=== PATIENT | male | born 1985 | race African-American/Black ===

== ENCOUNTER 2016-05-19 22:34 | Observation (INO) ==
[2016-05-19] MEDS ORDERED: DIPH/TET/ACEL PERT BOOSTER VACCINE 0.5 ML VIAL IM ONE ×2 (22:47→22:48)
[2016-05-19] MEDS ORDERED: SODIUM CHLORIDE 0.9% 1,000 ML IV STA (22:48)
[2016-05-19] MEDS ORDERED: ceFAZolin 1,000 MG VIAL ONE (22:54)
[2016-05-19 22:59] LABS: Basophils % 0.5 % (0.0-0.8); Eosinophils % 0.5 % (0.00-10.9); Hematocrit 47.5 VOL% (42.0-52.0); Hemoglobin 15.7 GM/DL (14.0-18.0); Immature Granulocytes % 0.2 %; Immature Granulocytes Absolute 0.01 #; Lymphocytes # 2.2 10*3/uL (1.4-4.0); Lymphocytes % 36.7 % (21.2-54.2); Mean Corpuscular HGB Conc 33.1 GM/DL (32-36); Mean Corpuscular Hemoglobin 29 PG (27-34); Mean Corpuscular Volume 88.5 FL (87-102); Mean Platelet Volume 9.9 FL (9.6-12.0); Monocytes # 0.4 10*3/uL (0.11-0.8); Monocytes % 6.9 % (1.7-12.7); Neutrophils # 3.3 10*3/uL (1.4-7.4); Neutrophils % 55.2 % (38.7-73.9); Platelet Count 180 T/CUMM (130-400); Red Blood Count 5.37 MC/CUMM (3.8-5.5); Red Cell Distribution Width 13.9 % (9.3-17.3); White Blood Count 5.9 T/CUMM (4-12)
[2016-05-19 23:06] LABS: PT Patient Result 10.6 SECS; Partial Thromboplastin Time < 21.0 SECS (0-40)
[2016-05-19] MEDS ORDERED: ONDANSETRON 4 MG/2 ML VIAL IV PRN (23:17)
[2016-05-19] MEDS ORDERED: ACETAMINOPHEN 325 MG TABLET PO PRN (23:17)
[2016-05-19] MEDS ORDERED: ALUMINUM/MAGNES/SIMETH MAX STR 30 ML UDCUP PO PRN (23:17)
[2016-05-19] MEDS ORDERED: HYDROmorphone 2 MG/1 ML VIAL IV PRN (23:17)
[2016-05-19 23:20] LABS: Lactic Acid 2.7 MMOL/L (0.4-2.0)
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
[2016-05-19 23:23] LABS: Albumin 4.7 G/DL (3.4-5.0); Bilirubin,Total 0.5 MG/DL (0.2-1.0); Calcium 9.2 MG/DL (8.5-10.1); Osmolality,Calculated 279.5 MOS/KG (273-304); Potassium 3.7 MMOL/L (3.5-5.1); Total Protein 8.3 G/DL (6.4-8.3)
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
[2016-05-20] MEDS: KETOROLAC 15 MG/1 ML VIAL IV SCH ×3 (01:07→12:08)
[2016-05-20] MEDS: DEXTROSE 5% LACTATED RINGERS 1,000 ML IV SCH ×2 (01:10→12:10)
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
[2016-05-20 08:03] LABS: Basophils % 0.4 % (0.0-0.8); Eosinophils # 0.1 10*3/uL (0.0-0.87); Eosinophils % 1.4 % (0.00-10.9); Hematocrit 40.8 VOL% (42.0-52.0); Hemoglobin 13.6 GM/DL (14.0-18.0); Immature Granulocytes % 0.1 %; Immature Granulocytes Absolute 0.01 #; Lymphocytes # 2.3 10*3/uL (1.4-4.0); Lymphocytes % 32.4 % (21.2-54.2); Mean Corpuscular HGB Conc 33.3 GM/DL (32-36); Mean Corpuscular Hemoglobin 29 PG (27-34); Mean Corpuscular Volume 86.8 FL (87-102); Mean Platelet Volume 9.4 FL (9.6-12.0); Monocytes # 0.7 10*3/uL (0.11-0.8); Monocytes % 9.1 % (1.7-12.7); Neutrophils % 56.6 % (38.7-73.9); Platelet Count 183 T/CUMM (130-400); Red Cell Distribution Width 13.7 % (9.3-17.3); White Blood Count 7.1 T/CUMM (4-12)
[2016-05-20] MEDS ORDERED: DOCUSATE SODIUM 100 MG CAPSULE PO SCH (09:00)
[2016-05-20] MEDS ORDERED: PANTOPRAZOLE 40 MG TABLET PO SCH (09:00)
[2016-05-20] MEDS ORDERED: BACITRACIN OINT 0.9 GM PACK TOP SCH (09:00)
[2016-05-20 09:09] LABS: Albumin 3.5 G/DL (3.4-5.0); Bilirubin,Total 0.8 MG/DL (0.2-1.0); Calcium 8.1 MG/DL (8.5-10.1); Osmolality,Calculated 280.3 MOS/KG (273-304); Potassium 3.7 MMOL/L (3.5-5.1)
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
[2016-05-20 12:12] VITALS: BP 111/72
--- NOTE | 2016-05-20 17:13 | EKG Report ---
Stationary ECG Study [facility] ER Test Date: 05/19/2016 10:55:04 PM Pat Name: SIMEON BRADFORD Department: Room: 336 Gender: M Bellstand Attendant: : 1985 Requested by: Harmeet Macdonald Order Number: [id number] Reading MD: SLIM GAINES Intervals [place] Rate: 106 P: 65 IA: 135 QRS: 46 QRSD: 86 T: 60 QT: 323 QTc: 385 Interpretive Statements SINUS TACHYCARDIA Electronically Signed On 05-21-16 16:43:14 CDT by SLIM GAINES [email or web address]
== END 2016-05-20 11:54 | disposition home or self-care (01) ==
LOC: N.ED 22:34 → INTOOBSV 23:17 → N.EDINP 23:17 → N.3E 05-20 00:21
PROVIDERS: ADMIT Specialist; ATTEND Specialist